=== PATIENT | male | born 1945 | race Two or more races ===

== ENCOUNTER 2019-07-20 06:00 | Day surgery (SDC) | payer OTHER | END 2019-07-20 10:45 | disposition home or self-care (01) | LOC: AMB-ENDOS 06:00 | DX: K29.60 Other gastritis without bleeding (principal); K44.9 Diaphragmatic hernia without obstruction or gangrene ==

== ENCOUNTER 2020-08-15 05:46 | Day surgery (SDC) | payer OTHER | END 2020-08-15 12:00 | disposition home or self-care (01) | LOC: AMB-ENDOS 05:46 | PROVIDERS: ATTEND Surgery | DX: D12.5 Benign neoplasm of sigmoid colon (principal); Z20.822 Contact with and (suspected) exposure to COVID-19; K62.1 Rectal polyp ==